=== PATIENT | female | born 1965 | race Caucasian/White ===

== ENCOUNTER 2020-12-12 21:28 | Emergency (ER) | payer OTHER ==
[2020-12-12 22:36] LABS: BASOPHIL 0.8 % (0-2); EOSINOPHIL 1.9 % (0-5); HCT 40.8 % (37.0-47.0); HGB 13.3 g/dl (12.5-16.0); LYMPHOCYTE 37.7 % (15-48); MCH 30.5 pg (25.0-31.0); MCHC 32.6 g/dL (32.0-36.0); MCV 93.6 fL (78.0-100.0); MONOCYTE 6.5 % (0-12); MPV 9.7 fL (6.0-9.5); NEUTROPHIL 52.7 % (41-80); NRBC 0; PLT 206 K/uL (150-400); RBC 4.36 M/uL (4.20-5.40); RDW 12.4 % (11.5-14.0); WBC 11.3 K/uL (4.0-10.5)
[2020-12-12 22:40] LABS: INR 0.96 (0.9-1.2); PROTHROMBIN TIME 12.1 SECONDS (11.4-13.6); PTT 26.9 SECONDS (22.2-34.7)
[2020-12-12 23:12] LABS: ALBUMIN 4.1 g/dL (3.4-5.0); ALKALINE PHOSHATASE 73 U/L (46-116); ALT 26 U/L (14-59); AST 22 U/L (15-37); BILIRUBIN - TOTAL 0.8 mg/dL (0.2-1.0); BUN 24 mg/dL (7-18); BUN/CREAT RATIO (CALC) 31.2 RATIO; C-REACTIVE PROTEIN <0.20 mg/dL (<=0.90); CHLORIDE 102 mmol/L (98-107); CO2 (BICARBONATE) 31 mmol/L (21-32); CREATININE 0.77 mg/dL (0.51-0.95); GLOBULIN (CALCULATION) 3.5 g/dL; GLUCOSE 94 mg/dL (74-106); LDH 200 U/L (81-234); POTASSIUM 3.7 mmol/L (3.5-5.1); TOTAL PROTEIN 7.6 g/dL (6.4-8.2)
[2020-12-13] MEDS ORDERED: CARAFATE S500 MG/TSP PO (02:15)
[2020-12-13] MEDS ORDERED: PROTONIX 40MG T40 MG PO (02:15)
[2020-12-13] MEDS ORDERED: ANASPAZ0.125 MG SL (02:15)
== END 2020-12-13 02:22 | disposition home or self-care (01) ==
LOC: FER 21:28
PROVIDERS: Emergency Medicine
DX: K21.00 Gastro-esophageal reflux disease with esophagitis, without bleeding (principal)
CPT/HCPCS: 36415; 71045; 71275; 80053; 82728; 83615; 83880; 84484; 85025; 85379; 85610; 85730; 86140; 93005; J1170; J2405; J7030; Q9967